=== PATIENT | male | born 1985 | race African-American/Black ===

== ENCOUNTER 2017-07-29 13:33 | Emergency (ER) | payer SELFPAY ==
[~2017-07-29] VITALS: Ht 172.7 cm; Wt 80.0 kg
[2017-07-29] MEDS ORDERED: IBUPROFEN 600MG TABLET PO ONE (15:00)
[2017-07-29] MEDS ORDERED: ACETAMINOPHEN WITH CODEINE 300/30MG TABLET PO ONE (15:15)
[2017-07-29 15:30] VITALS: BP 128/77
== END 2017-07-29 16:05 | disposition home or self-care (01) ==
LOC: ER 13:45
DX: S00.03XA Contusion of scalp, initial encounter (principal); Y00.XXXA Assault by blunt object, initial encounter; Y93.89 Activity, other specified; Y92.488 Other paved roadways as the place of occurrence of the external cause
CPT/HCPCS: 70450; 99284

== ENCOUNTER 2020-03-19 11:12 | Emergency (ER) | payer BC ==
[~2020-03-19] VITALS: Ht 172.7 cm; Wt 77.0 kg
[2020-03-19] MEDS ORDERED: SODIUM CHLORIDE 0.9% 1,000 ML IV ONE (12:15)
[2020-03-19 12:35] LABS: CLARITY URINE CLEAR (CLEAR); COLOR URINE PALE YELLOW (YELLOW); KETONES URINE NEGATIVE (NEGATIVE); LEUKOCYTE ESTERASE URINE NEGATIVE (NEGATIVE); NITRITE URINE NEGATIVE (NEGATIVE); OCCULT BLOOD URINE NEGATIVE (NEGATIVE); PROTEIN URINE NEGATIVE (NEGATIVE); SPECIFIC GRAVITY URINE 1.004 (1.005-1.030); UROBILINOGEN URINE 0.2 E.U./dL (0.2-1.0)
[2020-03-19 12:49] LABS: *AMPHETAMINES SCREEN URINE NEGATIVE (NEGATIVE)
[2020-03-19 12:50] LABS: *BARBITURATES SCREEN URINE NEGATIVE (NEGATIVE); *BENZODIAZEPINES SCREEN URINE NEGATIVE (NEGATIVE); *COCAINE SCREEN URINE NEGATIVE (NEGATIVE); METHADONE URINE SCREEN NEGATIVE (NEGATIVE); OPIATES URINE SCREEN NEGATIVE (NEGATIVE); PHENCYCLIDINE URINE SCREEN NEGATIVE (NEGATIVE)
[2020-03-19 12:51] LABS: CANNABINOID URINE SCREEN PRESUMTIVE POSITIVE (NEGATIVE)
[2020-03-19 12:53] LABS: BASOPHILS % 0.7 % (0.0-2.0); EOSINOPHILS % 3.2 % (0.0-5.0); HEMATOCRIT. 40.9 % (42.0-52.0); HEMOGLOBIN. 14.2 g/dL (14.0-18.0); LYMPHOCYTES % 32.6 % (20.0-50.0); MEAN CORPUSCULAR HEMOGLOBIN 32.3 pg (28.0-32.0); MEAN CORPUSCULAR VOLUME 93.1 fL (80.0-94.0); MEAN PLATELET VOLUME 8.1 fl (7.4-10.4); NEUTROPHILS % 57.5 % (40.0-76.0); PLATELET 236 x1000/uL (130-400); RED BLOOD CELL COUNT 4.39 mill/uL (4.7-6.1); RED CELL DISTRIBUTION WIDTH 13.6 % (11.6-14.6)
[2020-03-19 12:59] LABS: CHLORIDE 109 mEq/L (98-107)
[2020-03-19] MEDS ORDERED: POTASSIUM CHLORIDE 20MEQ TABLET SR PO ONE (17:30)
[2020-03-20 00:08] VITALS: BP 110/70
== END 2020-03-20 00:27 | disposition home or self-care (01) ==
LOC: ER 11:51
DX: R10.9 Unspecified abdominal pain (principal); M79.605 Pain in left leg; F10.129 Alcohol abuse with intoxication, unspecified; F15.10 Other stimulant abuse, uncomplicated; F12.10 Cannabis abuse, uncomplicated; F19.10 Other psychoactive substance abuse, uncomplicated; E87.6 Hypokalemia; I25.10 Atherosclerotic heart disease of native coronary artery without angina pectoris; F17.200 Nicotine dependence, unspecified, uncomplicated; Z87.440 Personal history of urinary (tract) infections; Z87.09 Personal history of other diseases of the respiratory system; Z98.890 Other specified postprocedural states; Y90.9 Presence of alcohol in blood, level not specified
CPT/HCPCS: 36415; 71045; 80053; 80305; 81003; 83880; 84484; 85025; 93005; 99285; J7030

== ENCOUNTER 2020-07-15 21:21 | Emergency (ER) | payer BC, MEDICAID ==
[~2020-07-15] VITALS: Ht 162.6 cm; Wt 82.0 kg
[2020-07-15 21:33] VITALS: BP 136/74
[2020-07-15] MEDS ORDERED: IBUPROFEN 600MG TABLET PO ONE (22:15)
[2020-07-15] MEDS ORDERED: DOXYCYCLINE HYCLATE 100MG CAPSULE PO ONE (23:00)
[2020-07-15] MEDS ORDERED: HYDROCODONE/ACETAMINOPHEN 5/325MG TABLET PO ONE (23:00)
[2020-07-15] MEDS ORDERED: CEFTRIAXONE SODIUM 250 MG/VIAL IM ONE (23:00)
[2020-07-15 23:36] LABS: CLARITY URINE CLEAR (CLEAR); COLOR URINE DARK YELLOW (YELLOW); KETONES URINE 1+ (NEGATIVE); LEUKOCYTE ESTERASE URINE TRACE (NEGATIVE); NITRITE URINE NEGATIVE (NEGATIVE); OCCULT BLOOD URINE NEGATIVE (NEGATIVE); PROTEIN URINE 1+ (NEGATIVE); SPECIFIC GRAVITY URINE 1.039 (1.005-1.030)
== END 2020-07-15 23:40 | disposition home or self-care (01) ==
LOC: ER 21:21
DX: N45.1 Epididymitis (principal); F41.9 Anxiety disorder, unspecified; Z87.440 Personal history of urinary (tract) infections; Z87.09 Personal history of other diseases of the respiratory system; Z98.890 Other specified postprocedural states; F17.290 Nicotine dependence, other tobacco product, uncomplicated; F12.10 Cannabis abuse, uncomplicated; F15.10 Other stimulant abuse, uncomplicated
CPT/HCPCS: 76870; 81003; 87086; 87491; 87591; 93005; 93976; 96372; 99285; J0696

== ENCOUNTER 2020-07-16 00:20 | Emergency (ER) | payer MEDICAID ==
[~2020-07-16] VITALS: Ht 172.7 cm; Wt 82.0 kg
[2020-07-16 00:26] VITALS: BP 136/82
== END 2020-07-16 00:52 | disposition home or self-care (01) ==
LOC: ER 00:20
DX: Z04.89 Encounter for examination and observation for other specified reasons (principal); Z59.0 Homelessness; I99.9 Unspecified disorder of circulatory system; F41.9 Anxiety disorder, unspecified; F12.10 Cannabis abuse, uncomplicated; F15.10 Other stimulant abuse, uncomplicated
CPT/HCPCS: 99283

== ENCOUNTER 2021-07-10 15:16 | Emergency (ER) | payer BC, MEDICAID ==
[~2021-07-10] VITALS: Ht 182.9 cm; Wt 105.0 kg
[2021-07-10 15:18] VITALS: BP 117/72
== END 2021-07-10 15:33 | disposition home or self-care (01) ==
LOC: ER 15:16
DX: R68.89 Other general symptoms and signs (principal); F15.90 Other stimulant use, unspecified, uncomplicated; F12.90 Cannabis use, unspecified, uncomplicated
CPT/HCPCS: 99283